=== PATIENT | male | born 1975 | race Caucasian/White ===

== ENCOUNTER 2021-02-08 18:55 | Inpatient (IN) ==
[2021-02-08 20:08] LABS: ABS Lymphocytes 0.6 10^3/ul (1.0-4.8); ABS Monocytes 0.2 10^3/ul (0-0.8); ABS Neutrophils 2.1 10^3/ul (1.5-7.7); Hematocrit 49 % (42-52); Hemoglobin 16.8 g/dL (14.0-18.0); Lymphocyte % 19.3 %; Mean Corpuscular HGB Conc 35 g/dL (31-36); Mean Corpuscular Hemoglobin 31 pg (27-31); Mean Corpuscular Volume 90 fL (80-94); Mean Platelet Volume 8.7 fL (7.4-10.4); Platelet Count 158 10^3/uL (150-450); Red Blood Count 5.42 10^6 /uL (4.18-5.48); Red Cell Distribution Width 14 % (10-15); White Blood Count 2.9 10^3/uL (3.5-10.8)
[2021-02-08 20:22] LABS: INR 1.3 (0.86-1.15)
[2021-02-08 20:37] LABS: ALT 65 U/L (7-52); AST 118 U/L (13-39); Albumin/Globulin Ratio 1.3 (1-3); Alkaline Phosphatase 43 U/L (35-149); Anion Gap 9 mmol/L (2-11); Blood Urea Nitrogen 8 mg/dL (6-24); CO2 Carbon Dioxide 30 mmol/L (22-32); Calcium 7.9 mg/dL (8.6-10.3); Chloride 96 mmol/L (101-111); Globulin 3.1 g/dL (2-4); Glucose 122 mg/dL (70-100); Sodium 135 mmol/L (135-145); Total Protein 7.1 g/dL (6.4-8.9); eGFR CKD-EPI 77.7 (>60)
[2021-02-08 20:53] LABS: Troponin I 0.04 ng/mL (<0.03)
[2021-02-08] MEDS ORDERED: Albuterol HFA INHALER 8 gm MDI INH ONE (21:01)
[2021-02-08] MEDS ORDERED: Famotidine IV 10 MG/ML 2 ml VIAL (20 mg) IV SLOW PU ONE (21:15)
[2021-02-08] MEDS ORDERED: Dexamethasone IV 4 MG/ML 5 ML VIAL (20 MG) IVPB ONE (21:15)
[2021-02-08] MEDS ORDERED: Lactated Ringers 1000 ml BAG 2,000 ML IV ONE (21:15)
[2021-02-08] MEDS ORDERED: Ondansetron 4 mg VIAL 2 MG/ML 2 ml VIAL IV ONE (21:15)
[2021-02-08 21:21] LABS: PCO2 Arterial 34 mmHg (35-45); PO2 Arterial 62 mmHg (80-100)
[2021-02-08] MEDS ORDERED: Azithromycin 500 mg/250 ml NS 500 MG/250 ML BAG IVPB ONE (22:31)
[2021-02-08 23:42] LABS: Troponin I 0.03 ng/mL (<0.03)
[2021-02-08 23:44] LABS: Ferritin 508.9 ng/mL (24-336)
[2021-02-09] MEDS ORDERED: Remdesivir 100 mg Vial 200 MG in NS 0.9% 250 ml 210 ML IV ONE (00:30)
[2021-02-09] MEDS: Enoxaparin 40 MG/0.4 ML SYR SUBCUT SCH ×2 (02:14→21:19)
[2021-02-09 05:59] LABS: ABS Lymphocytes 0.4 10^3/ul (1.0-4.8); ABS Monocytes 0.1 10^3/ul (0-0.8); ABS Neutrophils 1.5 10^3/ul (1.5-7.7); Hematocrit 46 % (42-52); Hemoglobin 15.6 g/dL (14.0-18.0); Mean Corpuscular HGB Conc 34 g/dL (31-36); Mean Corpuscular Hemoglobin 31 pg (27-31); Mean Corpuscular Volume 90 fL (80-94); Mean Platelet Volume 8.8 fL (7.4-10.4); Nucleated Red Blood Cells % 0.1; Platelet Count 155 10^3/uL (150-450); Red Blood Count 5.11 10^6 /uL (4.18-5.48); Red Cell Distribution Width 14 % (10-15)
[2021-02-09 06:05] LABS: INR 1.23 (0.86-1.15)
[2021-02-09 06:14] LABS: Albumin 3.5 g/dL (3.2-5.2); Albumin/Globulin Ratio 1.3 (1-3); Globulin 2.7 g/dL (2-4); Potassium 4.7 mmol/L (3.5-5.0); Total Bilirubin 0.3 mg/dL (0.2-1.0); Total Protein 6.2 g/dL (6.4-8.9)
[2021-02-09 06:39] LABS: Troponin I 0.03 ng/mL (<0.03)
[2021-02-09] MEDS: NS 0.9% 1000 ml BAG 1,000 ML IV SCH (18:33)
[2021-02-09] MEDS ORDERED: Remdesivir 100 mg Vial 100 MG in NS 0.9% 250 ml 230 ML IV SCH (21:00)
[2021-02-10] MEDS: NS 0.9% 1000 ml BAG 1,000 ML IV SCH ×2 (05:51→14:20)
[2021-02-10 05:57] LABS: INR 1.17 (0.86-1.15)
[2021-02-10 06:11] LABS: Albumin 3.3 g/dL (3.2-5.2); Albumin/Globulin Ratio 1.3 (1-3); Calcium 7.9 mg/dL (8.6-10.3); Globulin 2.6 g/dL (2-4); Potassium 4.4 mmol/L (3.5-5.0); Total Bilirubin 0.4 mg/dL (0.2-1.0); Total Protein 5.9 g/dL (6.4-8.9); eGFR CKD-EPI 111.4 (>60)
[2021-02-10 07:41] LABS: ABS Lymphocytes 0.8 10^3/ul (1.0-4.8); ABS Monocytes 0.5 10^3/ul (0-0.8); Hematocrit 45 % (42-52); Hemoglobin 15.2 g/dL (14.0-18.0); Lymphocyte % 8.4 %; Mean Corpuscular HGB Conc 34 g/dL (31-36); Mean Corpuscular Hemoglobin 30 pg (27-31); Mean Corpuscular Volume 90 fL (80-94); Mean Platelet Volume 8.6 fL (7.4-10.4); Platelet Count 193 10^3/uL (150-450); Red Cell Distribution Width 14 % (10-15); White Blood Count 9.3 10^3/uL (3.5-10.8)
[2021-02-10 14:38] VITALS: BP 149/71
== END 2021-02-10 17:35 | disposition home or self-care (01) | DRG 137 ==
LOC: ED 18:55 → EDHOLD 23:39 → SUATTDRO 23:39 → MED 02-09 00:31
PROVIDERS: ADMIT Internal Medicine; ATTEND Internal Medicine